=== PATIENT | male | born 1995 | race Caucasian/White ===

== ENCOUNTER 2018-12-30 00:25 | Emergency (ER) | payer SELFPAY ==
[~2018-12-30] VITALS: Wt 63.5 kg
== END 2018-12-30 02:00 | disposition home or self-care (01) ==
LOC: ED 00:25
DX: T78.40XA Allergy, unspecified, initial encounter (principal); Z88.1 Allergy status to other antibiotic agents; X58.XXXA Exposure to other specified factors, initial encounter